=== PATIENT | female | born 1950 | race Caucasian/White ===

== ENCOUNTER → 2018-12-25 | Outpatient (CLI) | payer MEDICARE, BC ==
[~2018-12-25] MED LIST: IOHEXOL 100 ML; SOD CHLORIDE 0.9% 100 ML
[2018-12-25 09:13] LABS: ANION GAP 12 (5-13); BLOOD UREA NITROGEN 14 mg/dl (7-20); CALCIUM 9.7 mg/dl (8.4-10.2); CARBON DIOXIDE 27 mmol/L (21-31); CHLORIDE 105 mmol/L (97-110); CREATININE 0.82 mg/dl (0.44-1.00); Estimated GFR > 60 mL/min (>60); GLUCOSE 137 mg/dl (70-220); POTASSIUM 3.9 mmol/L (3.5-5.1); SODIUM 144 mmol/L (135-144)
[2018-12-25] MEDS: METOPROLOL 5 MG INJ (10:18)
[2018-12-25] MEDS: NITROGLYCERIN AEROSOL (4.9 GM) (10:27)
== END | disposition home or self-care (01) ==
LOC: LAB 08:13
DX: R94.39 Abnormal result of other cardiovascular function study (principal)
CPT/HCPCS: 75571; 75574; 80048